=== PATIENT | female | born 1960 | race Caucasian/White ===

== ENCOUNTER → 2020-09-19 | Outpatient (CLI) | payer OTHER ==
--- NOTE | 2020-09-19 08:57 | Diagnostic Imaging Report ---
PROCEDURE: US Hepatic (Liver). TECHNIQUE: Multiple real-time grayscale images were obtained over the right upper quadrant in various projections. INDICATION: Right upper quadrant pain. FINDINGS: The liver is upper limits of normal in size at 17.5 cm. Portal vein is patent and shows normal direction of flow. No discrete liver mass is detected. Gallbladder is surgically absent. No biliary ductal dilatation is seen. Pancreas is unremarkable. Aorta and IVC were obscured by bowel gas. Right kidney is without calculi or hydronephrosis. There is no ascites. IMPRESSION: Status post cholecystectomy. No liver mass or biliary ductal dilatation is seen. Dictated by: Dictated on workstation # [id number]
== END ==
LOC: RAD 07:38
PROVIDERS: ATTEND Nurse Practitioner Family
DX: R10.11 Right upper quadrant pain (principal); Z90.49 Acquired absence of other specified parts of digestive tract
CPT/HCPCS: 76705

== ENCOUNTER → 2022-10-01 | Outpatient (CLI) | payer OTHER | END | disposition home or self-care (01) | LOC: PREOP 05:34 | PROVIDERS: ATTEND Internal Medicine | DX: Z01.818 Encounter for other preprocedural examination (principal) ==